=== PATIENT | female | born 1955 | race Caucasian/White ===

== ENCOUNTER 2021-12-25 19:26 | Inpatient (IN) | payer MEDICARE, BC ==
[~2021-12-25 19:26] MED LIST: LACTATED RINGERS 1,000 ML IV ONE
[2021-12-25] MEDS ORDERED: SODIUM CHLORIDE 0.9% 1,000 ML IV STA (19:55)
[2021-12-25] MEDS ORDERED: KETOROLAC 15 MG/ML VIAL IVP STA (19:55)
--- NOTE | 2021-12-25 19:58 | ED Physician Documentation ---
PD HPI ABD PAIN - Stated complaint Stated Complaint: NOT EATING/DRINKING - Chief complaint Chief Complaint: Abd Pain - History obtained from History obtained from: Patient - Additional information Additional information: 66-year-old woman who is quite healthy other than hip and knee replacements developed vomiting, abdominal pain, and right inguinal pain and swelling starting 3 nights ago. She has diffuse abdominal pain, its not too bad. She has been vomiting everything she eats. She has swelling in the right inguinal area that she assumed was a gland. No history of abdominal surgeries. She had a bowel movement on the day of the onset of symptoms but not since and she does not note flatus either. No fevers. Review of Systems Ten Systems: 10 systems reviewed and negative Constitutional: denies: Fever, Chills Eyes: reports: Reviewed and negative Ears: reports: Reviewed and negative Nose: reports: Reviewed and negative Throat: reports: Reviewed and negative Cardiac: reports: Reviewed and negative Respiratory: reports: Reviewed and negative PD PAST MEDICAL HISTORY - Past Medical History Past Medical History: No - Past Surgical History Past Surgical History: Yes Ortho: Hip replacement, Knee replacement - Present Medications Home Medications: Ambulatory Orders Medication Instructions Recorded Confirmed Ibuprofen 2 tab ORAL PRN PRN 12/25/21 12/25/21 - Allergies Allergies/Adverse Reactions: Allergies Allergy/AdvReac Type Severity Reaction Status Date / Time No Known Drug Allergies Allergy Verified 12/25/21 19:38 - Social History Does the pt smoke?: No Smoking Status: Never smoker Does the pt drink ETOH?: Yes Does the pt have substance abuse?: No PD ED PE NORMAL - Vitals Vital signs reviewed: Yes - General General: Alert and oriented X 3, No acute distress - HEENT HEENT: PERRL, EOMI - Neck Neck: Supple, no meningeal sign, No bony TTP - Cardiac Cardiac: RRR, No murmur - Respiratory Respiratory: No respiratory distress, Clear bilaterally - Abdomen Abdomen: Other (He did. I am unable to reduceTenderness and swelling in the right inguinal area which on bedside ultrasound appears to be bowel it. She has hyperactive high-pitched bowel sounds without significant abdominal tenderness.) - Back Back: No CVA TTP, No spinal TTP - Derm Derm: Normal color, Warm and dry - Extremities Extremities: No edema, No calf tenderness / cord - Neuro Neuro: Alert and oriented X 3, Normal speech Results - Vitals Vitals: Vital Signs - 24 hr 12/25/21 12/25/21 19:34 21:34 Temperature 36.8 C Heart Rate 81 79 Respiratory 16 15 Rate Blood Pressure 113/85 H 121/89 H O2 Saturation 98 96 Oxygen O2 Source Room air - Labs Labs: Laboratory Tests 12/25/21 12/25/21 12/25/21 19:57 19:57 20:49 WBC 8.3 RBC 4.45 Hgb 15.0 Hct 42.5 MCV 95.5 MCH 33.7 H MCHC 35.3 RDW 11.4 L Plt Count 191 MPV 10.5 Neut # (Auto) 6.0 Lymph # (Auto) 1.1 L [place] # (Auto) 1.2 H Eos # (Auto) 0.0 Baso # (Auto) 0.0 Absolute Nucleated RBC 0.00 Nucleated RBC % 0.0 Sodium 135 Potassium 3.4 L Chloride 97 L Carbon Dioxide 29 Anion Gap 9.0 BUN 21 H Creatinine 0.8 Estimated GFR (MDRD) 72 L Glucose 139 H Calcium 9.7 Magnesium 2.2 Total Bilirubin 2.6 H AST 16 ALT 16 Alkaline Phosphatase 47 Total Protein 7.9 Albumin 4.3 Globulin 3.6 Albumin/Globulin Ratio 1.2 SARS-CoV-2 (PCR) NOT DETECTED Procedures - Procedural sedation Sedation prep: Informed consent, Time out completed, PE performed, ASA 1 - healthy Sedation Medications: propofol (80, then 40, then 60mg IVP) Mallampati classification: I Patient status during sedation: Responds to tactile Sedation recovery: Recovered uneventfully, Back to baseline Time in sedation (Minutes): 15 PD MEDICAL DECISION MAKING - ED course ED course: 66-year-old woman presents with vomiting, clinically most likely a small bowel obstruction related to a right inguinal hernia that is quite firm on exam. CT imaging consistent with the above diagnosis. Case discussed by phone with Dr. Camacho, our on-call surgeon who would like to trial sedation in the emergency department with closed reduction of the hernia and preparations were made for procedural sedation for the above procedure. Doug came to the bedside and attempted reduction of the hernia with sedation which was not successful and now plans to take her to the operating room. Departure - Departure Disposition: ED Transfer to [facility] Clinical Impression: Small bowel obstruction, Incarcerated inguinal hernia, unilateral Condition: Stable
[2021-12-25 20:03] LABS: BASOPHILS % (AUTO) 0.2 %; EOSINOPHILS % (AUTO) 0.5 %; HCT - HEMATOCRIT 42.5 % (37.0-47.0); LYMPHOCYTES # (AUTO) 1.1 10^3/uL (1.5-3.5); LYMPHOCYTES % (AUTO) 12.8 %; MEAN CORPUSCULAR HEMOGLOBIN 33.7 pg (27.0-31.0); MEAN CORPUSCULAR HGB CONC 35.3 g/dL (32.0-36.0); MEAN CORPUSCULAR VOLUME 95.5 fL (81.0-99.0); MEAN PLATELET VOLUME 10.5 fL (7.9-10.8); MONOCYTES # (AUTO) 1.2 10^3/uL (0.0-1.0); NEUTROPHILS % (AUTO) 72.3 %; PLT - PLATELET COUNT 191 10^3/uL (130-450); RED BLOOD COUNT 4.45 10^6/uL (4.20-5.40); RED CELL DISTRIBUTION WIDTH 11.4 % (12.0-15.0); WHITE BLOOD COUNT 8.3 x10^3/uL (4.8-10.8)
[2021-12-25 20:15] LABS: ALBUMIN 4.3 g/dL (3.2-5.5); ALBUMIN/GLOBULIN RATIO 1.2 (1.0-2.2); BILIRUBIN,TOTAL 2.6 mg/dL (0.2-1.0); CALCIUM 9.7 mg/dL (8.5-10.3); CREATININE 0.8 mg/dL (0.4-1.0); MAGNESIUM 2.2 mg/dL (1.7-2.8); POTASSIUM 3.4 mmol/L (3.5-5.0); TOTAL PROTEIN 7.9 g/dL (6.7-8.2)
[2021-12-25] MEDS ORDERED: IOVERSOL 320 100 ML VIAL IVP ONE ×2 (20:15→20:47)
[2021-12-25] MEDS ORDERED: PROPOFOL 200 MG/20 ML VIAL IVP STA (21:06)
--- NOTE | 2021-12-25 21:22 | CT Report ---
PROCEDURE: Abdomen/Pelvis W INDICATIONS: IV only, abd pain/vomiting, suspect SBO d/t RIH CONTRAST: IV CONTRAST: Optiray 320 ml: 100 PO CONTRAST: *NO PO CONTRAST TECHNIQUE: After the administration of nonionic contrast, 5 mm thick sections acquired from the diaphragms to th e symphysis. 5 mm thick coronal and sagittal reformats were acquired. For radiation dose reduction, the following was used: automated exposure control, adjustment of mA and/or kV according to patient size. COMPARISON: None. FINDINGS: Image quality: Excellent. ABDOMEN: Lung bases: Lung bases are clear. Heart size is normal. Solid organs: Liver and spleen are normal in size and enhancement. Gallbladder appears normal Bili edgar system is non dilated. Pancreas enhances normally. No adrenal nodules. Kidneys demonstrate nor mal size and enhancement, without hydronephrosis. Peritoneum and bowel: Colonic bowel loops demonstrate normal wall thickness and caliber. In contrast the small bowel is abnormally dilated, measuring up to 4.8 cm in maximal axial dimension, without pn eumatosis or evidence of bowel perforation. This extends to the right lower quadrant and into the pel vis, where extensive metal artifact from bilateral total hip arthroplasty devices significantly reduc es quality of visualization. However, the small bowel can be seen extending to the inguinal canal and herniated into the inguinal canal as the source of obstruction more superiorly. The colon does not a ppear involved No free fluid or air. Nodes and vessels: No retroperitoneal or mesenteric adenopathy by size criteria. Aorta and inferior vena cava are normal in size. Miscellaneous: No ventral hernias. PELVIS: Genitourinary: Bladder wall thickness is normal. Miscellaneous: No left-sided inguinal hernias or adenopathy. Right inguinal obstructive hernia caus ing small bowel obstruction or superiorly within the abdomen. No bowel perforation is suspected. Bones: No suspicious bony lesions. No vertebral body compression fractures. IMPRESSION: Extensive metal artifact from bilateral hip arthroplasty devices crosses the lower pelvi s, reducing quality of visualization in that area. There is, through the metal artifact, clear eviden ce of a high-grade small bowel obstruction due to herniation of small bowel into the right inguinal c anal. Pneumatosis or bowel perforation is not associated. The colon does not appear involved in the h erniation. Surgical consultation appears warranted Reviewed by: Roby Tony MD on 12/25/2021 9:20 PM PST Approved by: Roby Tony MD on 12/25/2021 9:20 PM PST Station ID: [id number]
--- NOTE | 2021-12-25 22:43 | HISTORY & PHYSICAL EXAMINATION ---
Chief Complaint - Chief Complaint Chief Complaint: groin pain and nausea History of Present Illness - Admitted From Admitted From:: ED - History Obtained From Records Reviewed: yes History obtained from: pt Exam Limitations: none - History of Present Illness HPI Comment/Other: 3 to 4 days of right groin pain and nausia. Had not noticed a groin lump until recently. History - Past Medical History MRSA Hx?: No - Past Surgical History Ortho: reports: Hip replacement, Knee replacement Meds/Allgy - Home Medications Home Medications: Ambulatory Orders Medication Instructions Recorded Confirmed Ibuprofen 2 tab ORAL PRN PRN 12/25/21 12/25/21 - Allergies Allergies/Adverse Reactions: Allergies Allergy/AdvReac Type Severity Reaction Status Date / Time No Known Drug Allergies Allergy Verified 12/25/21 19:38 Review of Systems - Other Findings Other Findings: 10 pt ros as above otherwise unremarkable Exam - Vital Signs Reviewed Vital Signs: Yes Vital Signs: Vital Signs x48h Temp Pulse Resp BP Pulse Ox 12/25/21 22:15 81 18 110/73 98 12/25/21 22:00 79 15 121/89 H 96 12/25/21 19:34 36.8 C 81 16 113/85 H 98 - Physical Exam General Appearance: positive: No acute distress, Alert Eyes Bilateral: positive: PERRL, EOMI Neck: positive: No JVD Respiratory: positive: No respiratory distress, Breath sounds nml Cardiovascular: positive: Regular rate & rhythm Abdomen: positive: Non-tender, No distention, Other (incarcerated right inguinal hernia. not able to reduce under sedation) Neurologic/Psychiatric: positive: Oriented x3 Conclusion/Plan - Problem List (1) Incarcerated inguinal hernia, unilateral Conclusion/Plan: incarcerated inguinal hernia with small bowel. not reducible even with sedation. plan open repair with mesh. parq held and consent obtained - Lab Results Fish Bones: 12/25/21 19:57 12/25/21 19:57
--- NOTE | 2021-12-25 23:00 | ANESTHESIA ---
Pre-Anesthesia VS, & Labs - Diagnosis incarcerated right inguinal hernia - Procedure Open right inguinal hernia repair Vital Signs: Temp Pulse Resp BP Pulse Ox 36.8 C 76 15 103/91 H 95 12/25/21 19:34 12/25/21 22:30 12/25/21 22:30 12/25/21 22:30 12/25/21 22:30 Height: 5 ft 6 in Weight (kg): 59.965 kg Body Mass Index: 21.3 BMI Classification: Healthy weight - NPO Other (jello at 1700.) - Is Patient ?: No - Lab Results Current Lab Results: Laboratory Tests 12/25/21 19:57: Sodium 135, Potassium 3.4 L, Chloride 97 L, Carbon Dioxide 29, Anion Gap 9.0, BUN 21 H, Creatinine 0.8, Estimated GFR (MDRD) 72 L, Glucose 139 H, Calcium 9.7, Magnesium 2.2, Total Bilirubin 2.6 H, AST 16, ALT 16, Alkaline Phosphatase 47, Total Protein 7.9, Albumin 4.3, Globulin 3.6, Albumin/Globulin Ratio 1.2 12/25/21 19:57: WBC 8.3, RBC 4.45, Hgb 15.0, Hct 42.5, MCV 95.5, MCH 33.7 H, MCHC 35.3, RDW 11.4 L, Plt Count 191, MPV 10.5, Neut # (Auto) 6.0, Lymph # (A uto) 1.1 L, Rains # (Auto) 1.2 H, Eos # (Auto) 0.0, Baso # (Auto) 0.0, Absolute Nucleated RBC 0.00, Nucleated RBC % 0.0 Lab results reviewed: Yes Fish Bones: 12/25/21 19:57 12/25/21 19:57 Home Medications and Allergies Home Medications: Ambulatory Orders Ibuprofen 2 tab ORAL PRN PRN 12/25/21 Ibuprofen 2 tab ORAL PRN PRN 12/25/21 Allergies/Adverse Reactions: Allergies Allergy/AdvReac Type Severity Reaction Status Date / Time No Known Drug Allergies Allergy Verified 12/25/21 19:38 Anes History & Medical History - Anesthetic History Anesthesia Complications: reports: No previous complications Family history of Anesthesia Complications: Denies Family history of Malignant Hyperthermia: Denies - Medical History Cardiovascular: reports: None Pulmonary: reports: None Gastrointestinal: reports: None Neuro: reports: None Musculoskeletal: reports: None Endocrine/Autoimmune: reports: None Blood Disorders: reports: None Skin: reports: None Smoking Status: Never smoker Psychosocial: reports: No issues indicated History of Cancer?: No - Surgical History Orthopedic: reports: Hip replacement, Knee replacement Exam General: Alert, Oriented x3, Cooperative, No acute distress Dental: WNL Mouth Openin Fingerbreadth Neck Mobility: Normal Mallampati classification: II Plan Anesthesia Type: General Consent for Procedure(s) Verified and Reviewed: Yes Code Status: Attempt Resuscitation ASA classification: 2-Mild systemic disease Is this case an emergency?: Yes
[2021-12-25] MEDS ORDERED: fentaNYL 100 MCG/2 ML VIAL ONE (23:10)
[2021-12-25] MEDS ORDERED: LIDOCAINE-MPF 2% 5 ML VIAL ONE (23:10)
[2021-12-25] MEDS ORDERED: PROPOFOL 200 MG/20 ML VIAL IVP ONE (23:10)
[2021-12-25] MEDS ORDERED: ROCURONIUM 50 MG/5 ML VIAL ONE (23:10)
[2021-12-25] MEDS ORDERED: DEXAMETHASONE 4 MG/ML VIAL ONE (23:11)
[2021-12-25] MEDS ORDERED: KETOROLAC 30 MG/ML VIAL ONE (23:11)
[2021-12-25] MEDS ORDERED: ceFAZolin 1 GM VIAL ONE (23:11)
[2021-12-25] MEDS ORDERED: ONDANSETRON 4 MG/2 ML VIAL ONE (23:11)
[2021-12-25] MEDS ORDERED: BUPIVACAINE 0.5% PF 10 ML VIAL ONE ×2 (23:17)
[2021-12-25] MEDS ORDERED: LACTATED RINGERS 1,000 ML IV SCH (23:45)
[2021-12-25] MEDS ORDERED: BUPIVACAINE 0.5% PF 10 ML VIAL IM ONE (23:52)
[2021-12-25] MEDS ORDERED: METOCLOPRAMIDE 10 MG/2 ML VIAL IVP PRN (23:57)
[2021-12-25] MEDS ORDERED: fentaNYL 100 MCG/2 ML VIAL IVP PRN (23:57)
[2021-12-25] MEDS ORDERED: MORPHINE 2 MG/ML CARPUJECT IVP PRN (23:57)
[2021-12-25] MEDS ORDERED: NALOXONE 0.4 MG/ML VIAL IVP PRN (23:57)
[2021-12-25] MEDS ORDERED: ONDANSETRON 4 MG/2 ML VIAL IVP PRN (23:57)
[2021-12-25] MEDS ORDERED: ATROPINE ABBOJECT 1 MG/10 ML SYRINGE IVP PRN (23:57)
[2021-12-25] MEDS ORDERED: ePHEDrine 50 MG/ML VIAL IVP PRN (23:57)
[2021-12-25] MEDS ORDERED: HYDROmorphone 0.5 MG/0.5 ML SYRINGE IVP PRN (23:57)
[2021-12-25] MEDS ORDERED: SUGAMMADEX 200 MG/2 ML VIAL IVP ONE (23:59)
[2021-12-26] MEDS ORDERED: ACETAMINOPHEN 325 MG TABLET PO PRN (01:39)
[2021-12-26] MEDS ORDERED: ONDANSETRON ODT 4 MG TABLET TL PRN (01:39)
[2021-12-26] MEDS ORDERED: oxyCODONE 5 MG TABLET PO PRN ×2 (01:39→05:50)
[2021-12-26] MEDS ORDERED: ONDANSETRON 4 MG/2 ML VIAL IVP PRN (01:39)
[2021-12-26] MEDS ORDERED: HYDROmorphone 0.5 MG/0.5 ML SYRINGE IVP PRN (01:39)
[2021-12-26] MEDS ORDERED: D5.45NS W/20 MEQ KCL 1,000 ML IV SCH (02:00)
--- NOTE | 2021-12-26 02:07 | ANESTHESIA POST OP EVALUATION ---
Anesthesia Post Eval - Post Anesthesia Eval Vitals: Last Vital Signs Temp 37.0 C 12/26/21 01:55 Pulse 91 12/26/21 02:00 Resp 18 12/26/21 02:00 BP 129/87 H 12/26/21 02:00 Pulse Ox 95 12/26/21 02:00 CV Function Including HR & BP: Stable Pain Control: Satisfactory Nausea & Vomiting: Negative Mental Status: Baseline Respiratory Status: Airway Patent Hydration Status: Satisfactory Anesthesia Complications: None
[2021-12-26] MEDS: D5.45NS W/20 MEQ KCL 1,000 ML IV SCH ×3 (05:50→21:12)
[2021-12-26] MEDS: ACETAMINOPHEN 325 MG TABLET PO PRN (05:59)
[2021-12-26] MEDS: traMADol 50 MG TABLET PO PRN ×3 (09:36→21:44)
[2021-12-26] MEDS: SODIUM CHLORIDE FLUSH 0.9% 10 ML SYRINGE IVP SCH ×2 (09:36→15:43)
[2021-12-26] MEDS: polyethylene glycoL 3350 17 GM PACKET PO SCH (09:36)
[2021-12-26] MEDS: ONDANSETRON 4 MG/2 ML VIAL IVP PRN ×2 (12:00→21:11)
--- NOTE | 2021-12-26 13:30 | OPERATIVE REPORT ---
Operative Report - General Admit Date: 12/26/21 Procedure Date: 12/26/21 Planned Procedure: open repair incarcerated right inguinal hernia Pre-Op Diagnosis: incarcerated right inguinal hernia with small bowel Procedure Performed: open reduction right femoral hernia, small bowel resection, jacklyn hernia repair Post Op Diagnosis: 6 cm small bowel/ incarcerated right femoral hernia - Procedure Note Primary Surgeon: maya matta Anesthesia Technique: General ET tube, Local Pathology: small bowel Estimated Blood Loss (mL): 10 Drain/Tube Type: Other (none) Indications: incarcerated hernia with bowel Findings: as above Complications: none - Other Other Information/Narrative: The patient was properly identified brought to the operating room and placed in supine position. General endotracheal anesthesia was induced. Sequential compression devices were placed. She was prepped and draped in a sterile fashion and given preoperative antibiotics. A 6 cm incision was made directly over the right groin bulge. Dissection proceeded with cutting current down to the hernia sac. Unfortunately this was an incarcerated femoral hernia and not an incarcerated inguinal hernia. The hernia sac was opened revealing very dusky swollen small intestine. Redundant hernia sac was removed with cautery. The femoral canal was then dilated slightly and bowel reduced. The ilioinguinal nerve was sharply excised back to musculature. Round ligament was removed with 0 Vicryl tie. The inguinal floor was identified and opened. The reduced bowel was identified. It was still incarcerated with very tight peritoneum. This was further opened. The intestine was further inspected. As above 6 cm was purple and edematous. There was a 1 cm ring which was clearly necrotic. Small bowel resection was performed with staplers. Mesentery was taken with clamps and 2-0 Vicryl tie. A end-to-end handsewn anastomosis was performed with outer 3-0 silk Lembert's and in a running 3-0 Vicryl suture. Good anastomosis was obtained. Mesentery was closed with 2 [id number] 2-0 silk sutures. Peritoneum was closed with a running 2-0 Vicryl suture. A Jacklyn type hernia repair was performed with multiple interrupted 0 PDS sutures. Musculature was secured to Guicho's ligament area and the shelving border of Poupart's ligament. The apone urosis was then closed with a running 2-0 Vicryl suture. Lanny's was closed with interrupted 3-0 Vicryl suture. Skin was closed with a running 4-0 Monocryl subcuticular suture. Dressing was applied. She tolerated the procedure well.
--- NOTE | 2021-12-26 13:37 | PROVIDER PROGRESS NOTE ---
Subjective - Subjective Pt reports feeling: Improved (mild nausea) Objective - Vital Signs/Intake & Output Reviewed Vital Signs: Yes Vital Signs: Vital Signs x48h Temp Pulse Resp BP Pulse Ox 12/26/21 07:47 36.9 C 94 16 115/69 96 Intake & Output: Intake & Output 12/23/21 12/24/21 12/25/21 12/26/21 23:59 23:59 23:59 23:59 Intake Total 1000 241.667 Balance 1000 241.667 - Objective General Appearance: positive: No acute distress, Alert ENT: positive: No signs of dehydration Neck: positive: No JVD Respiratory: positive: No respiratory distress Abdomen: positive: Non-tender, No distention Neurologic/Psychiatric: positive: Oriented x3 - Lab Results Fish Bones: 12/25/21 19:57 12/25/21 19:57 Other Labs: Lab Results x24hrs 12/25/21 12/25/21 12/25/21 Range/Units 20:49 19:57 19:57 WBC 8.3 (4.8-10.8) x10^3/uL RBC 4.45 (4.20-5.40) 10^6/uL Hgb 15.0 (12.0-16.0) g/dL Hct 42.5 (37.0-47.0) % MCV 95.5 (81.0-99.0) fL MCH 33.7 H (27.0-31.0) pg MCHC 35.3 (32.0-36.0) g/dL RDW 11.4 L (12.0-15.0) % Plt Count 191 (130-450) 10^3/uL MPV 10.5 (7.9-10.8) fL Neut # (Auto) 6.0 (1.5-6.6) 10^3/uL Lymph # (Auto) 1.1 L (1.5-3.5) 10^3/uL [place] # (Auto) 1.2 H (0.0-1.0) 10^3/uL Eos # (Auto) 0.0 (0.0-0.7) 10^3/uL Baso # (Auto) 0.0 (0.0-0.1) 10^3/uL Absolute Nucleated RBC 0.00 x10^3/uL Nucleated RBC % 0.0 /100WBC Sodium 135 (135-145) mmol/L Potassium 3.4 L (3.5-5.0) mmol/L Chloride 97 L (101-111) mmol/L Carbon Dioxide 29 (21-32) mmol/L Anion Gap 9.0 (6-13) BUN 21 H (6-20) mg/dL Creatinine 0.8 (0.4-1.0) mg/dL Estimated GFR (MDRD) 72 L (>89) Glucose 139 H (70-100) mg/dL Calcium 9.7 (8.5-10.3) mg/dL Magnesium 2.2 (1.7-2.8) mg/dL Total Bilirubin 2.6 H (0.2-1.0) mg/dL AST 16 (10-42) IU/L ALT 16 (10-60) IU/L Alkaline Phosphatase 47 (42-121) IU/L Total Protein 7.9 (6.7-8.2) g/dL Albumin 4.3 (3.2-5.5) g/dL Globulin 3.6 (2.1-4.2) g/dL Albumin/Globulin Ratio 1.2 (1.0-2.2) SARS-CoV-2 (PCR) NOT DETECTED Assessment/Plan - Problem List (1) Ischemic necrosis of small bowel Impression: continue present care ivf, npo except sips and ice chips
[2021-12-26] MEDS: SODIUM CHLORIDE FLUSH 0.9% 10 ML SYRINGE IVP PRN (21:22)
[2021-12-27] MEDS: SODIUM CHLORIDE FLUSH 0.9% 10 ML SYRINGE IVP SCH ×3 (00:40→16:11)
[2021-12-27] MEDS: traMADol 50 MG TABLET PO PRN ×3 (02:09→20:21)
[2021-12-27] MEDS: D5.45NS W/20 MEQ KCL 1,000 ML IV SCH ×3 (05:52→22:08)
[2021-12-27] MEDS: ONDANSETRON 4 MG/2 ML VIAL IVP PRN ×2 (05:59→20:13)
[2021-12-27] MEDS: polyethylene glycoL 3350 17 GM PACKET PO SCH (09:40)
[2021-12-27] MEDS ORDERED: METOCLOPRAMIDE 10 MG TABLET PO PRN (10:36)
--- NOTE | 2021-12-27 10:38 | PROVIDER PROGRESS NOTE ---
Subjective - Subjective Pt reports feeling: No change (bloating and mild nausea) Objective - Vital Signs/Intake & Output Reviewed Vital Signs: Yes Vital Signs: Vital Signs x48h Temp Pulse Resp BP Pulse Ox 12/27/21 07:41 37.1 C 74 17 106/72 95 Intake & Output: Intake & Output 12/24/21 12/25/21 12/26/21 12/27/21 23:59 23:59 23:59 23:59 Intake Total 1000 2562.500 1000 Balance 1000 2562.500 1000 - Objective General Appearance: positive: Alert Eyes Bilateral: positive: PERRL, EOMI Neck: positive: No JVD Respiratory: positive: No respiratory distress Abdomen: positive: Non-tender, Other (moderate distension. dressing c/d/i no sammi thema) Neurologic/Psychiatric: positive: Oriented x3 - Lab Results Fish Bones: 12/25/21 19:57 12/25/21 19:57 Assessment/Plan - Problem List (1) Ischemic necrosis of small bowel Impression: ileus continue present care
[2021-12-27] MEDS: MAG HYDROX/AL HYDROX/SIMETH 30 ML UDC PO PRN ×2 (11:52→16:09)
[2021-12-27] MEDS: ACETAMINOPHEN 325 MG TABLET PO PRN ×2 (16:09→20:05)
--- NOTE | 2021-12-28 00:44 | XRAY Report ---
PROCEDURE: Chest 1 View X-Ray INDICATIONS: Check for NG tube placement TECHNIQUE: One view of the chest was acquired. COMPARISON: None FINDINGS: Surgical changes and devices: NG tube projects to the stomach.. Lungs and pleura: No pleural effusions or pneumothorax. Lungs are clear. Mediastinum: Mediastinal contours appear normal. Heart size is normal. Bones and chest wall: No suspicious bony lesions. Overlying soft tissues appear unremarkable. Small bowel obstruction. IMPRESSION: NG tube projects to the stomach. Reviewed by: Ricci Riddle MD on 12/28/2021 12:42 AM PST Approved by: Ricci Riddle MD on 12/28/2021 12:42 AM PST Station ID: [id number]
[2021-12-28] MEDS: SODIUM CHLORIDE FLUSH 0.9% 10 ML SYRINGE IVP SCH ×3 (04:22→17:13)
[2021-12-28] MEDS: D5.45NS W/20 MEQ KCL 1,000 ML IV SCH ×3 (05:49→21:39)
[2021-12-28] MEDS: SENNA 8.6 MG TABLET PO SCH (07:28)
[2021-12-28] MEDS: DOCUSATE SODIUM 250 MG CAPSULE PO SCH (07:28)
[2021-12-28] MEDS: polyethylene glycoL 3350 17 GM PACKET PO SCH (08:46)
--- NOTE | 2021-12-28 10:30 | PROVIDER PROGRESS NOTE ---
Subjective - Prog Note Date Prog Note Date: 12/28/21 - Subjective Pt reports feeling: Improved (feeling better after ng tube placed. no flatus/ bm) Objective - Vital Signs/Intake & Output Reviewed Vital Signs: Yes Vital Signs: Vital Signs x48h Temp Pulse Resp BP Pulse Ox 12/28/21 08:18 36.4 C L 79 19 116/76 94 Intake & Output: Intake & Output 12/25/21 12/26/21 12/27/21 12/28/21 23:59 23:59 23:59 23:59 Intake Total 1000 2562.500 2932.083 990.417 Output Total 1650 1950 Balance 1000 2562.500 1282.083 -959.583 - Objective General Appearance: positive: No acute distress, Alert Eyes Bilateral: positive: PERRL, EOMI Respiratory: positive: No respiratory distress Abdomen: positive: Non-tender, No distention Neurologic/Psychiatric: positive: Oriented x3 - Lab Results Fish Bones: 12/25/21 19:57 12/25/21 19:57 Other Labs: Lab Results x24hrs 12/28/21 12/28/21 12/27/21 Range/Units 05:56 00:01 17:48 POC Whole Bld Glucose 107 H 129 H 144 H (70 - 100) mg/dL Assessment/Plan - Problem List (1) Ischemic necrosis of small bowel Impression: ileus. more comfortable after ngt placed. continue present care.
[2021-12-28] MEDS: ACETAMINOPHEN 325 MG TABLET PO PRN ×3 (12:00→19:34)
[2021-12-28] MEDS: BENZOCAINE/MENTHOL LOZENGE MM PRN ×3 (12:04→17:33)
[2021-12-28] MEDS: PHENOL THROAT SPRAY 177 ML MM PRN (23:52)
[2021-12-29] MEDS: PHENOL THROAT SPRAY 177 ML MM PRN (04:05)
[2021-12-29] MEDS: SODIUM CHLORIDE FLUSH 0.9% 10 ML SYRINGE IVP SCH ×3 (05:04→19:14)
[2021-12-29] MEDS: D5.45NS W/20 MEQ KCL 1,000 ML IV SCH ×3 (05:07→21:10)
[2021-12-29] MEDS: ACETAMINOPHEN 325 MG TABLET PO PRN ×4 (05:12→23:34)
[2021-12-29] MEDS: BENZOCAINE/MENTHOL LOZENGE MM PRN (07:55)
[2021-12-29] MEDS: MAG HYDROX/AL HYDROX/SIMETH 30 ML UDC PO PRN (07:55)
[2021-12-29] MEDS: SENNA 8.6 MG TABLET PO SCH (08:06)
[2021-12-29] MEDS: DOCUSATE SODIUM 250 MG CAPSULE PO SCH (08:06)
[2021-12-29] MEDS: polyethylene glycoL 3350 17 GM PACKET PO SCH (08:06)
--- NOTE | 2021-12-29 08:37 | PROVIDER PROGRESS NOTE ---
Subjective - Subjective Pt reports feeling: Improved (couple small bms. abdomen soft) Objective - Vital Signs/Intake & Output Reviewed Vital Signs: Yes Vital Signs: Vital Signs x48h Temp Pulse Resp BP Pulse Ox 12/29/21 07:31 36.7 C 69 16 116/76 95 Intake & Output: Intake & Output 12/26/21 12/27/21 12/28/21 12/29/21 23:59 23:59 23:59 23:59 Intake Total 2562.500 2932.083 3016.667 993.333 Output Total 1650 5000 650 Balance 2562.500 1282.083 -1983.333 343.333 - Objective General Appearance: positive: No acute distress, Alert Eyes Bilateral: positive: PERRL, EOMI Respiratory: positive: No respiratory distress Abdomen: positive: Non-tender, No distention Neurologic/Psychiatric: positive: Oriented x3 - Lab Results Fish Bones: 12/25/21 19:57 12/25/21 19:57 Other Labs: Lab Results x24hrs 12/29/21 12/29/21 12/28/21 Range/Units 06:06 00:00 17:25 POC Whole Bld Glucose 108 H 107 H 106 H (70 - 100) mg/dL 12/28/21 Range/Units 11:17 POC Whole Bld Glucose 121 H (70 - 100) mg/dL Assessment/Plan - Problem List (1) Ischemic necrosis of small bowel Impression: ileus resolving d/c ngt clears as tolerated liquid nutrition drink bid to qid as tolerated
[2021-12-29] MEDS: SODIUM CHLORIDE FLUSH 0.9% 10 ML SYRINGE IVP PRN (10:55)
[2021-12-30] MEDS: SODIUM CHLORIDE FLUSH 0.9% 10 ML SYRINGE IVP SCH ×2 (01:12→08:50)
[2021-12-30] MEDS: D5.45NS W/20 MEQ KCL 1,000 ML IV SCH (05:15)
[2021-12-30 07:29] VITALS: BP 127/70
[2021-12-30] MEDS: DOCUSATE SODIUM 250 MG CAPSULE PO SCH (08:50)
[2021-12-30] MEDS: polyethylene glycoL 3350 17 GM PACKET PO SCH (08:50)
[2021-12-30] MEDS: SENNA 8.6 MG TABLET PO SCH (08:50)
--- NOTE | 2021-12-30 10:22 | Discharge Plan ---
Discharge Plan Problem Reviewed?: Yes Disposition: Home, Self Care Condition: Good Diet: Regular (slowly advance as tolerated) Shower Restrictions: No (ok to remove the dressing anytime) Driving Restrictions: No Plan of Treatment: repair of incarcerated femoral hernia and small bowel resection 12/26/2021 ng tube Assessment: doing well 12/30/2021 d/c in good condition Additional Instructions or Follow Up instructions: call the surgery office with any questions or concerns [phone] maya matta md No Smoking: If you smoke, Please STOP! Call for help.
--- NOTE | 2021-12-30 10:26 | DISCHARGE SUMMARY ---
"Discharge Summary Admit Date: 12/25/21 Discharge Date: 12/30/21 Discharging Provider: maya matta md Code Status: Attempt Resuscitation Discharge Facility Name: [facility] - DIAGNOSES Admission Diagnoses: incarcerated inguinal hernia with small bowel obstruction Discharge Diagnoses with Status of Each Condition: incarcerated femoral hernia with 6 cm necrotic small bowel - HPI History of Present Illness: present with 3 days groin pain and nausea/ vomiting - CONSULTS | PROCEDURES Procedures: open repair incarcerated right femoral hernia and small bowel resection. mariama repair without mesh or permanent suture material - HOSPITAL COURSE Hospital Course: ileus requiring ng tube. doing well 12/30/2021. taking liquids well. no nausea. bowel function returning. - ALLERGIES Allergies/Adverse Reactions: Allergies Allergy/AdvReac Type Severity Reaction Status Date / Time No Known Drug Allergies Allergy Verified 12/25/21 19:38 - MEDICATIONS Home Medications: Ambulatory Orders Medication Instructions Recorded Confirmed Ibuprofen 400 mg PO Q6H PRN 12/25/21 12/26/21 - PHYSICAL EXAM AT DISCHARGE General Appearance: positive: No acute distress, Alert Eyes Bilateral: positive: PERRL, EOMI ENT: positive: No signs of dehydration Neck: positive: No JVD Respiratory: positive: No respiratory distress Abdomen: positive: Non-tender, No distention, Other (denies erythema) Neurologic/Psychiatric: positive: Oriented x3 - LABS Result Diagrams: 12/25/21 19:57 12/25/21 19:57 - FOLLOW UP Follow Up: call [facility] with any questions or concerns [phone] maya matta"
== END 2021-12-30 11:50 | disposition home or self-care (01) | DRG 394 ==
LOC: ED 19:26 → SDS 22:20 → MS3 12-26 01:39 → MS2 12-27 14:30
PROVIDERS: ADMIT Surgery; ATTEND Surgery
PROC: 0DB80ZZ Excision of Small Intestine, Open Approach (ICD-10-PCS; principal; 2021-12-25 23:30)
DX: K40.30 Unilateral inguinal hernia, with obstruction, without gangrene, not specified as recurrent (principal); Z20.822 Contact with and (suspected) exposure to COVID-19; K56.7 Ileus, unspecified; Z96.649 Presence of unspecified artificial hip joint; Z96.659 Presence of unspecified artificial knee joint
CPT/HCPCS: 36415; 44120; 49507; 71045; 74177; 80053; 83735; 85025; 87635; 96361; 96374; 99152; 99283; 99285; A9270; J1170; J7040; J7120; Q9967; 94770